=== PATIENT | female | born 1940 | race Caucasian/White ===

== ENCOUNTER 2017-12-11 04:29 | Inpatient (IN) | payer SELFPAY ==
[2017-12-11 05:04] LABS: #Basophils 0.1 thou/uL (0.0-0.2); #Lymphocytes 2.3 thou/uL (1.20-3.40); #Monocytes 0.5 thou/uL (0.11-0.59); #Neutrophils 2.5 thou/uL (1.40-6.50); %Basophils 1.4 % (0.0-1.0); %Eosinophils 0.1 % (0.0-10.0); %Lymphocytes 43.3 % (21.0-51.0); %Monocytes 8.9 % (0.0-10.0); %Neutrophils 46.3 % (42.0-75.0); Hemoglobin 11.1 g/dL (12.0-16.0); Mean Corpuscular HGB CONC 34.1 g/dL (32.0-36.0); Mean Platelet Volume 6.5 fL (7.4-10.4); Platelet Count 292 thou/uL (130-400); RBC Distribution Width 11.6 % (11.5-14.5); Red Blood Cell (RBC) Count 3.18 mill/uL (4.20-5.40); White Blood Cell (WBC) Count 5.3 thou/uL (4.8-10.8)
[2017-12-11 05:18] LABS: Anion Gap 14 mmol/L (10-20); BUN (Urea Nitrogen) 15 mg/dL (9.8-20.1); Calc. Creatinine Clearance 0 mL/min (70-130); Calcium 9.3 mg/dL (7.8-10.44); Carbon Dioxide 23 mmol/L (23-31); Chloride 106 mmol/L (98-107); Estimated GFR-MDRD 77; Glucose 88 mg/dL (83-110); Potassium 3.6 mmol/L (3.5-5.1); Sodium 139 mmol/L (136-145)
[2017-12-11 07:14] VITALS: BMI 21.9
[2017-12-11] MEDS ORDERED: Ondansetron ODT 4 MG TAB SL PRN (07:17)
[2017-12-11] MEDS ORDERED: Ondansetron HCl/PF 4 MG/2 ML Vial IVP PRN ×2 (07:17→07:26)
[2017-12-11] MEDS ORDERED: Acetaminophen 325 MG TAB PO PRN (07:17)
[2017-12-11] MEDS ORDERED: Ondansetron ODT 4 MG TAB PO PRN (07:26)
[2017-12-11] MEDS ORDERED: Dextrose 50% Abboject 50 ML SYRINGE SLOW IVP PRN (07:26)
[2017-12-11] MEDS ORDERED: hydrALAZINE 20 MG/ML VIAL SLOW IVP PRN (07:26)
[2017-12-11] MEDS ORDERED: Sodium Chloride 0.9% 1,000 ML IV SCH (07:26)
[2017-12-11] MEDS ORDERED: Dextrose 5% in Water 1,000 ML IV PRN (07:26)
[2017-12-11] MEDS ORDERED: Famotidine 20 MG TAB PO SCH (09:00)
--- NOTE | 2017-12-11 11:56 | HP ---
REASON FOR CONSULTATION: Pelvis fracture. HISTORY OF PRESENT ILLNESS: This is a very poor historian; however, she is able to tell me that she fell about 4-6 weeks ago. For some reason, she was taken to the hospital in [place] and transfe rred here not really sure why. On examination today, she has full range of motion of both hips, only very mild tenderness to the pel vis, compression and distraction. Really no significant bruising or swelling around the pelvis. Rad iograph show multiple pelvis fractures which completely nondisplaced and in various stages of healing . ASSESSMENT AND PLAN: Subacute pelvis fracture in a woman with only minimally uncomfortable range of motion and a completely stable pelvis fracture. Physical therapy, weightbearing as tolerated. It so unds like she may need skilled nursing placement.
[2017-12-11] MEDS ORDERED: Acetaminophen 1,000 MG in Premix Bag 1 BAG IVPB SCH (12:00)
--- NOTE | 2017-12-11 12:29 | RAD ---
AP PELVIS: HISTORY: Injury, fall. FINDINGS: There are fractures involving the left superior and inferior pubic rami. Please see CT pelvis report from earlier today. POS: [facility]
--- NOTE | 2017-12-11 14:14 | HP ---
DATE OF ADMISSION: 12/11/2017 REQUESTING PHYSICIAN: Dr. Burks. ATTENDING PHYSICIAN: Dr. Kaufman. CONSULTATIONS: Orthopedics, Dr. Lamar. HISTORY OF PRESENT ILLNESS: The patient is a 77-year-old female who was transferred here from [facility] with a vague history of a fall, occurring at some. The patient is a very poor historian an d her is not with us, but the patient has had history of previous falls and was reportedly ta aidan to the emergency room in [place] after a fall where she underwent evaluation and examination and was noted to have possibly acute on chronic pelvic fractures, at which time we were asked to adm it the patient for observation and review by Orthopedics. ALLERGIES: None. CURRENT MEDICATIONS: Currently unavailable. We are waiting the family members to bring us her list. PAST MEDICAL HISTORY: Reported as Alzheimer's and hypertension. PAST SURGICAL HISTORY: Appendectomy, cholecystectomy, right knee replacement. SOCIAL HISTORY: The patient reports she drinks occasionally. Denies drug or tobacco use. Lives at home with her in the [place] area. FAMILY MEDICAL HISTORY: Unknown. REVIEW OF SYSTEMS: Ten point review of systems negative otherwise stated. PHYSICAL EXAMINATION: VITAL SIGNS: Blood pressure 125/65, heart rate 96, respirations 14, oxygen saturation 94% on room ai r, temperature is 98.2. GENERAL: The patient is currently resting comfortably in bed on the surgical floor. She is awake, a lert, and oriented to person, but is able to be oriented to time and place. She is appropriate and d enies any discomfort at this time. HEENT: Head is normocephalic, atraumatic. Eyes: Extraocular motion intact. PERRLA bilaterally. E ars are atraumatic without discharge. Nose is atraumatic with discharge. Oropharynx is clear. NECK: Nontender. Trachea is midline. No JVD. CHEST: Clear to auscultation with good inspiratory and expiratory effort. HEART: Regular rate and rhythm. ABDOMEN: Soft, flat, nontender. PELVIC: Stable and nontender. EXTREMITIES: The patient is able to move her extremities, full range of motion. Her strength is 5/5 and pulses are 2+. BACK: Nontender and atraumatic. LABORATORY DATA: White blood cell count 5.3, hemoglobin 11.1, hematocrit 32.7, platelets 292. Sodiu m 139, potassium 3.6, chloride 106, CO2 23, BUN 15, creatinine 0.73, glucose 88. RADIOGRAPHIC FINDINGS: AP chest shows fractures involving this right sixth and seventh rib. AP pelv is shows fractures involving the left superior and inferior pubic rami fractures. CT of the pelvis w as reviewed with Dr. Lamar. Fractures all appeared to have callus of some degree of healing on them consistent with the patient's reported prior falls. ASSESSMENT AND PLAN: Status post fall. The patient has chronic findings on her pelvis x-ray and due to her being nontender in the chest unlikely that the fracture seen on her chest x-ray are acute. P er the patient and the family's request, she requests to be discharged home. Her pain is controlled with [id number] pain medication. She is tolerating a diet. She has worked with physical thera py and is able to ambulate with her walker as is her baseline. The evaluation, examination, radiogra phic and laboratory findings were discussed with Dr. Kaufman at the time of dictation.
[2017-12-11 14:21] VITALS: BP 146/84; TEMP 97.8
== END 2017-12-11 14:33 | disposition home or self-care (01) | DRG 536 ==
LOC: ERS 04:29 → SURG A 05:42
PROVIDERS: ADMIT Surgery; ATTEND Surgery
DX: S32.592A Other specified fracture of left pubis, initial encounter for closed fracture (principal); S22.41XA Multiple fractures of ribs, right side, initial encounter for closed fracture; G30.9 Alzheimer's disease, unspecified; F02.80 Dementia in other diseases classified elsewhere, unspecified severity, without behavioral disturbance, psychotic disturbance, mood disturbance, and anxiety; I10 Essential (primary) hypertension; W19.XXXA Unspecified fall, initial encounter; Z91.81 History of falling; Y92.009 Unspecified place in unspecified non-institutional (private) residence as the place of occurrence of the external cause
CPT/HCPCS: 36415; 72170; 99285; G8978-GP-CK; G8979-GP-CI

== ENCOUNTER 2018-12-03 13:32 | Inpatient (IN) | payer MEDICARE ==
[2018-12-03] MEDS ORDERED: Iopamidol 370 76% 50 ML VIAL FS ONE (13:57)
[2018-12-03] MEDS ORDERED: Multivitamins, Adult 10 ML, Thiamine HCl 100 MG, Folic Acid 1 MG in Dextrose 5 %-0.45 %... IV SCH (15:00)
[2018-12-03 15:01] LABS: ALT (SGPT) Less than 7 U/L (8-55); AST (SGOT) 19 U/L (5-34); Albumin 3.4 g/dL (3.4-4.8); Alkaline Phosphatase 77 U/L (40-150); Anion Gap 33 mmol/L (10-20); BUN (Urea Nitrogen) 42 mg/dL (9.8-20.1); Bilirubin, Total 0.6 mg/dL (0.2-1.2); Calc. Creatinine Clearance 0 mL/min (70-130); Calcium 7.7 mg/dL (7.8-10.44); Chloride 105 mmol/L (98-107); Estimated GFR-MDRD 23; Globulin 2.7 g/dL (2.4-3.5); Glucose 95 mg/dL (83-110); Potassium 4.3 mmol/L (3.5-5.1); Protein, Total 6.1 g/dL (6.0-8.3); Sodium 142 mmol/L (136-145)
[2018-12-03 15:04] LABS: Carbon Dioxide 8 mmol/L (23-31)
[2018-12-03 16:28] LABS: Bilirubin 1+ (Negative); Blood, Urine Negative (Negative); Clarity Turbid (Clear); Glucose, Urine (Dipstick) Normal (Negative); Leukocyte 75 Leu/uL (Negative); Nitrite Negative (Negative); Protein, Urine (Dipstick) 50 mg/dL (Neg-Trace); RBC/HPF 0-3 HPF (0-3)
[2018-12-03 16:32] LABS: Bacteria/HPF 2+ HPF (None Seen)
[2018-12-03] MEDS ORDERED: Senokot S 8.6-50 MG TAB PO PRN (16:35)
[2018-12-03] MEDS ORDERED: Acetaminophen 650 MG Suppository PR PRN (16:35)
[2018-12-03] MEDS ORDERED: Ondansetron ODT 4 MG TAB PO PRN (16:35)
[2018-12-03] MEDS ORDERED: Acetaminophen 325 MG TAB PO PRN (16:35)
[2018-12-03] MEDS ORDERED: Sodium Chloride 0.9% 1,000 ML IV SCH (16:45)
--- NOTE | 2018-12-03 16:47 | PDOC.FPRHP ---
- History of Present Illness Chief Complaint: Nausea and Vomiting History of Present Illness: The pt states she woke up vomiting last night and nauseous, so she decided to go to the ER. ED Course: She was given 2L of fluid in [place] ER. She was transferred with a liter. In our, she received 1L of fluid of banana bag. She had a LA of 2.7 in [place] that was rechecked her and found to be 1.8. She has a creatinine of 2.12, CO2 of 8, Anion gap is 33, and BUN is 42. - Allergies/Adverse Reactions Allergies Allergy/AdvReac Type Severity Reaction Status Date / Time aspirin Allergy Intermediate Hives Verified 02/28/18 12:30 - Home Medications Medication Instructions Recorded Confirmed Type Acetaminophen [Tylenol Regular 650 mg PO Q4H PRN tab 12/11/17 09/19/18 Rx Strength] Lisinopril [Prinivil] 40 mg PO DAILY 03/03/18 09/19/18 History Folic Acid [Folvite] 1 mg PO 1700 tab 03/09/18 09/19/18 Rx Memantine HCl [Namenda] 10 mg PO DAILY tab 03/09/18 09/19/18 Rx Multivitamin W/ Minerals 1 tab PO DAILY tab 03/09/18 09/19/18 Rx [Theragran M] Bisacodyl [Dulcolax] 10 mg PO DAILY PRN 09/16/18 09/19/18 History Thiamine 100 mg PO 1700 09/16/18 09/19/18 History Haloperidol Lactate [Haldol] 5 mg IM BIDPRN PRN vial 09/28/18 Rx Magnesium Chloride [Slow-Mag] 64 mg PO BID tab 09/28/18 Rx Nitroglycerin [Nitrostat] 0.4 mg SL Q5MIN PRN tab 09/28/18 Rx Ondansetron [Zofran ODT] 4 mg SL Q6H PRN tab 09/28/18 Rx traMADol HCl [Ultram] 50 mg PO BIDPRN PRN tab 09/28/18 Rx - History PMHx: HTN PSHx: Left & Right Knee Replacement in 2018, Appendectomy, Cholecystectomy, and Tonsillectomy FHx: None Social: Lives with . Retired. Drinks weekly, denies drugs, and does not smoke - Review of Systems General: denies: fever/chills Eyes: denies: vision changes ENT: denies: nasal congestion, rhinorrhea Respiratory: reports: shortness of breath. denies: cough Cardiovascular: denies: chest pain Gastrointestinal: reports: nausea, vomiting. denies: diarrhea Genitourinary: denies: dysuria Skin: denies: rashes, itching Musculoskeletal: reports: pain Neurological: reports: weakness Psychological: denies: anxiety - Vital signs BP: [92/60] HR: [103] RR: [22] Tmax: [97.6] Pox: [100]% on [RA] Wt: [69.85 kg ] - Physical Exam Constitutional: NAD -Constitutional: A&O x 1 HEENT: normocephalic and atraumatic, PERRLA, EOMI, grossly normal hearing, MMM, oropharynx clear -HEENT: Unable to visualize TM Neck: supple, no LAD Chest: no-tender to palpation Heart: RRR, normal S1/S2 Lungs: CTAB Abdomen: soft, bowel sounds present -Abdomen: tender to palpation Musculoskeletal: normal structure -Musculoskeletal: UE & LE were 4/5 Neurological: no focal deficit, CN II-XII intact Skin: no rash/lesions Heme/Lymphatic: no unusual bruising or bleeding -Psychiatric: memory deficits FMR H&P: Results - Labs Result Diagrams: 12/03/18 14:30 Lab results: Sodium 142 mmol/L (136-145) 12/03/18 14:30 Potassium 4.3 mmol/L (3.5-5.1) 12/03/18 14:30 Chloride 105 mmol/L (98-107) 12/03/18 14:30 Carbon Dioxide 8 mmol/L (23-31) L* 12/03/18 14:30 BUN 42 mg/dL (9.8-20.1) H 12/03/18 14:30 Creatinine 2.12 mg/dL (0.6-1.1) H 12/03/18 14:30 Glucose 95 mg/dL (83-110) 12/03/18 14:30 Lactic Acid 1.8 mmol/L (0.5-2.2) 12/03/18 14:30 Calcium 7.7 mg/dL (7.8-10.44) L 12/03/18 14:30 Total Bilirubin 0.6 mg/dL (0.2-1.2) 12/03/18 14:30 AST 19 U/L (5-34) 12/03/18 14:30 ALT Less than 7 U/L (8-55) L 12/03/18 14:30 Alkaline Phosphatase 77 U/L (40-150) 12/03/18 14:30 Serum Total Protein 6.1 g/dL (6.0-8.3) 12/03/18 14:30 Albumin 3.4 g/dL (3.4-4.8) 12/03/18 14:30 Urine Ketones 10 mg/dL (Negative) A 12/03/18 16:10 Urine Blood Negative (Negative) 12/03/18 16:10 Urine Nitrite Negative (Negative) 12/03/18 16:10 Ur Leukocyte Esterase 75 Kiran/uL (Negative) A 12/03/18 16:10 Urine RBC 0-3 HPF (0-3) 12/03/18 16:10 Urine WBC 7-10 HPF (0-3) A 12/03/18 16:10 Ur Squamous Epith Cells 4-6 HPF (0-3) A 12/03/18 16:10 Urine Bacteria 2+ HPF (None Seen) A 12/03/18 16:10 FMR H&P: A/P - Problem List (1) Hypotension Current Visit: Yes Status: Acute (2) ANDREW (acute kidney injury) Current Visit: Yes Status: Acute Code(s): N17.9 - ACUTE KIDNEY FAILURE, UNSPECIFIED (3) Metabolic acidosis Current Visit: Yes Status: Acute Code(s): E87.2 - ACIDOSIS (4) Elevated troponin Current Visit: Yes Status: Acute Code(s): R74.8 - ABNORMAL LEVELS OF OTHER SERUM ENZYMES (5) Acute cystitis Current Visit: Yes Status: Acute Code(s): N30.00 - ACUTE CYSTITIS WITHOUT HEMATURIA (6) History of alcohol abuse Current Visit: Yes Status: Chronic Code(s): F10.11 - ALCOHOL ABUSE, IN REMISSION - Plan 1. Hypotension * She recieved 4L in the ER * 1/2NS with 75 mEq of BiCarb @ 125 * Will monitor vitals in IMCU 2. ANDREW with tubular necrosis * Urine studies ordered * 1/2 NS with 75 mEq of BiCarb @ 125 * Will check BMP in the morning * Nephrology consulted (12/03), appreciate recs. 3. Metabolic Acidosis * Will trend BMP and make sure ion gap closes * Receiving 75 mEq of Bicarb 4. Troponin * Will trend troponins * Contacted [facility] to get more on code status 5. Acute Cystitis * UA was postive for LE and WBC * 1 g of Rocephin was given in the ER 6. History of Alcohol Abuse * She received a banana bag in the ER * Giving PO Thiamine daily Code Status: Full Lines: Peripheral Diet: Regular Activity: with assist DVT Prophylaxis: Heparin Dispo: This patient will be here >48H. FMR H&P: Upper Level - Pertinent history 78 y/o F PMHx HTN and chronic alcohol abuse presents with N/V that started last night as well as abdominal pain. She presented to the ED in [place] and was found to have SBP in the 70s. She reports she hasn't been able to keep much down, but she also reports decreased appetite and PO intake over the past couple of months. She has a h/o alcohol abuse, but hasn't been drinking as much lately. She reports having a single mixed drink a couple of days ago. - Pertinent findings Vitals: BP 83/40, HR 98, RR 21, Temp 97.6 PE: Gen - resting comfortably in bed, no acute distress HEENT - dry mucous membranes CV - tachycardic, regular rhythm, no murmurs Resp - CTAB, no wheezes Abd - non-distended, soft, non-tender Ext - no edema Labs: Hb 10.3, CO2 8, BUN 42, Cr 2.12, Trop 0.043 - Plan Date/Time: 12/03/18 [id number] I, Sally Anthony MD, PGY-3, have evaluated this patient and agree with findings/ plan as outlined by internal controls analyst resident. Pertinent changes/additions are listed here. 1. Hypotension 2/2 dehydration with recent episodes of emesis and decreased PO intake. BP's initially 70s/40s, pt s/p 3L NS and 1L banana bag. Her BP's at that point had only improved to the 80s/50s. Concern that there is concurrent ATN. -Will admit to IMCU -Will hold off on pressors at this time and continue to fluid resuscitate as BP' s are beginning to come up -Monitor BP closely -1/2NS with 75mEq HCO3 at 125mL/hr 2. ANDREW Likely both prerenal and ATN. Cr 2.34->2.12 with BUN 42. CO2 8. -Consulted Dr. Mooney with Nephrology, appreciate recs -Fluids as above -Monitor BMP -Will check urine creatinine, protein, sodium, and urea nitrogen 3. Anion Gap Metabolic Acidosis AG 29. Bicarb 8. Concern initially that this could be alcoholic ketoacidosis 2/ 2 past history, but last drink was several days ago and blood alcohol level was negative. -Fluids as above -Nephrology on board -Check beta hydroxybutyrate 4. Elevated troponin Denies any current chest pain. Initial trop 0.043 -Trend trop 5. h/o alcohol abuse No recent abuse per patient. Alcohol level negative. No signs of withdrawal. 6. Acute Cystitis UA showed crystals, bacteria, and LE -Will treat with rocephin -Urine culture Code status: Full VTE ppx: Heparin Dispo: Admit to [facility]
[2018-12-03] MEDS ORDERED: Sodium Bicarbonate 75 MEQ in Sodium Chloride 0.45% 1,000 ML IV SCH (17:15)
[2018-12-03 17:51] LABS: Creatinine, Urine 136.79 mg/dL (47-110)
[2018-12-03 17:59] LABS: Lactic Acid 1.5 mmol/L (0.5-2.2)
[2018-12-03 18:16] LABS: CKMB 5.5 ng/mL (0-6.6)
[2018-12-03] MEDS ORDERED: cefTRIAXone\\ROCEPHIN 1 GM in Sodium Chloride 0.9% 100 ML IVPB SCH (18:30)
[2018-12-03] MEDS ORDERED: Ondansetron PF 4 MG/2 ML Vial ONE (19:42)
--- NOTE | 2018-12-03 20:55 | CON ---
DATE OF CONSULTATION: 12/03/2018 REASON FOR CONSULTATION: Acute kidney injury and severe metabolic acidosis. REQUESTING PHYSICIAN: Sally Anthony MD. CHIEF COMPLAINT: Abdominal pain and weakness. HISTORY OF PRESENT ILLNESS: A 78-year-old female, with known history of chronic alcohol abuse, hypertension, noncompliance, who presented to [facility] with complaint of abdominal pain associated with nausea and vomiting as well as loose stools. The patient is a poor historian. Most of the history was obtained by review of medical record. On further evaluation in [place] ER, the patient was found to be hypertensive, dehydrated, and with severe metabolic acidosis as well as acute kidney injury and was treated with IV fluids. She was subsequently transferred over here for further evaluation and treatment. On further questioning, the patient reported that she has been sick for a long period of time. She admitted to abdominal pain which she said has worsened, especially in the lower abdomen. She admitted to nausea and vomiting as well as loose stools and reported that last 2 was about 2 to 3 days ago and last emesis was about 1 week ago. Oral intake has been poor for several weeks. She also admitted to falls. She admitted to alcohol use with last alcohol intake being about 2 to 3 nights ago. She is not taking any medication currently at home. She admitted to fever at home, but there has been none since presentation to the hospital. PAST MEDICAL HISTORY: 1. Hypertension. 2. Chronic alcoholism. 3. Chronic back pain. PAST SURGICAL HISTORY: 1. Total hysterectomy with BSO. 2. Cholecystectomy. 3. Appendectomy. 4. Right risk surgery for fracture. 5. Left foot fracture surgery. 6. Lumbar spine surgery. 7. Right knee surgery. FAMILY HISTORY: Reviewed, but noncontributory. SOCIAL HISTORY: The patient lives with spouse at home. She admitted to alcohol use, but denied smoking or recreational drug use. ALLERGIES: NO KNOWN DRUG ALLERGIES REPORTED. CURRENT HOME MEDICATIONS: None. REVIEW OF SYSTEMS: 12-point review of system reviewed were negative other than pertinent positives and negatives included in the History of Present Illness. PHYSICAL EXAMINATION: VITAL SIGNS: Initial vitals on presentation to the ER showed BP of 96/51, pulse of 89, respiratory rate of 18, temperature of 97.5. Most current BP was 110/58. Of note, during the course of ER stay, blood pressure has gone down to a roly of 75 systolic. GENERAL: Chronically ill-looking elderly female, in no obvious distress. Afebrile. Anicteric. Acyanotic. HEENT: Normocephalic, atraumatic. Pupils are reacting to light. Oral mucosa is moist. NECK: Supple. Nontender with full range of motion. No masses, JVD, or lymphadenopathy appreciated. CARDIOVASCULAR: Regular rhythm and rate with normal heart sounds 1 and 2. RESPIRATORY: Fair air entry bilateral with no obvious crackle or rhonchi. GI: Full, soft with [id number]-[id number] bilateral lower abdominal tenderness. Bowel sound is normoactive. EXTREMITIES: Appear rather dry, but otherwise no edema, erythema, or cyanosis. NEUROLOGIC: Conscious and alert, oriented x3 with appropriate mental status. Memory lapse is noted. The patient cranial nerves 2 through 12 are grossly intact. The patient moves all extremities. DIAGNOSTIC DATA: CBC today showed WBC count of 8.6, hemoglobin of 10.2, MCV of 103.7, and platelet of 160. Of note, review of previous labs showed that the patient had a hemoglobin of 8.5 and 9.1 on September 17 and , respectively. Initial CMP performed at [facility] showed sodium 143, potassium 4.4, chloride 99, CO2 less than 10, BUN 43, creatinine 2.34, glucose 95, calcium 8.2, total bilirubin 0.9, AST 23, ALT 12, alkaline phosphatase 89, total protein 7.1, albumin 3.9, globulin 3.2. Lipase 23. Lactic acid 2.7. Review of medical records showed the patient had normal creatinine of 0.69 on September 21, 2018, but creatinine has been elevated at 2.63 and that ranged since September 26, 2018. Cardiac markers showed CK 3.3, troponin 0.043. Repeat CMP at 1430 hours today showed sodium 142, potassium 4.3, chloride 105, CO2 of 8, anion gap 33, BUN 42, creatinine 2.12, glucose 95, calcium 7.7, total bilirubin 0.6, AST 19, ALT less than 7, alkaline phosphatase 77, total protein 6.1, albumin 3.4, globulin 2.7. Following IV fluid therapy, lactic acid decreased to 1.5. Urinalysis showed yellow turbid urine with pH of 5.0, specific gravity of 1.014, protein 50 mg/dL, positive ketones, bilirubin, and leukocyte esterase while blood, nitrite, and glucose were negative. Microscopy showed 0 to 3 RBC and 7 to 10 WBC. Toxicology screen showed less than 10 mg/dL of alcohol and elevated beta-hydroxybutyrate at 10.08. EKG showed normal sinus rhythm with rate of 88. ASSESSMENT: 1. Acute kidney injury: This most likely is related to hemodynamic factors due to volume depletion from poor oral intake and alcohol-induced diuresis. Sepsis from our occult infection is a concern, but seems unlikely. The patient also reported some prior episode of nausea, vomiting, and diarrhea illness. 2. Severe anion gap metabolic acidosis: This most likely is due to acute kidney injury as well as gastrointestinal losses of bicarb. Dehydration ketosis as well as alcohol ketosis may be contributory. Occult abdominal pathology cannot be ruled out at this time given abdominal tenderness. 3. Hypotension: Most likely due to volume depletion. Occult infection and sepsis cannot be ruled out. 4. Abdominal tenderness: Etiology is unclear. 5. History of nausea, vomiting, and diarrhea. Timing of this cannot be established. The patient currently is not having any of this. PLANS: 1. We will start sodium bicarbonate infusion given severe metabolic acidosis. We will also get CT scan of the abdomen and pelvis with oral contrast. 2. We will get urine electrolytes as well as UPC. 3. We will also get serum magnesium as well as folic acid and vitamin B12 given macrocytosis. 4. Microcytic anemia: Most likely related to chronic alcohol abuse. 5. We will recheck renal function in the morning. Many thanks for involving us in the care of this patient. We will follow along with you. Further recommendation to follow on review of other diagnostic tests and hospital course. Job ID: [id number]
[2018-12-03] MEDS ORDERED: Famotidine 20 MG TAB PO SCH (21:00)
[2018-12-03 21:21] LABS: Anion Gap 24 mmol/L (10-20); BUN (Urea Nitrogen) 40 mg/dL (9.8-20.1); Calc. Creatinine Clearance 16 mL/min (70-130); Calcium 7.2 mg/dL (7.8-10.44); Carbon Dioxide 14 mmol/L (23-31); Chloride 107 mmol/L (98-107); Estimated GFR-MDRD 22; Glucose 176 mg/dL (83-110); Potassium 3.9 mmol/L (3.5-5.1); Sodium 141 mmol/L (136-145)
[2018-12-03] MEDS: Heparin 5,000 UNITS/ML VIAL SC SCH (22:06)
[2018-12-03] MEDS: Sodium Bicarbonate 150 MEQ in Dextrose 5% in Water 1,000 ML IV SCH (22:08)
--- NOTE | 2018-12-03 22:45 | CT ---
ABDOMEN AND PELVIC CT SCAN WITHOUT IV CONTRAST: History: Nausea, vomiting, diarrhea. FINDINGS: Bilateral pleural effusions. Minimal parenchymal changes in both lower lobes, nonspecific, possibly m ild pneumonitis or subsegmental atelectasis. Status post cholecystectomy. Visualized liver, pancreas, spleen, adrenal glands are unremarkable as e valuated without IV contrast. There are some calcifications which appear to be vascular calcification s in the right kidney. No obstructing calculus. There are colonic diverticulosis changes throughou t the sigmoid colon and left colon, particularly the sigmoid colon. There is some minimal sigmoid col on wall thickening but no discrete focal area of significant pericolonic fat stranding that would sug gest acute diverticulitis although it is conceivable that this could represent some very mild diverti culitis. No evidence for large or small bowel obstruction. Marked vertebral body collapse of L2 and T 12, age indeterminate but new when compared to prior 11-19-16 study. IMPRESSION: Bilateral pleural effusions. Minimal bibasilar parenchymal changes, possibly mild pneumonitis or subs egmental atelectasis. Colonic diverticulosis, particularly the sigmoid colon, with some minimal wall thickening but without overt discrete acute diverticulitis. T12 and L2 vertebral body collapse, age i ndeterminate. No intraabdominal abscess or abnormal fluid collection. POS: [facility]
[2018-12-03] MEDS ORDERED: Sodium Chloride 0.9% 500 ML IV SCH (23:45)
[2018-12-04 05:02] LABS: #Lymphocytes 1.1 thou/uL (1.20-3.40); #Monocytes 0.5 thou/uL (0.11-0.59); #Neutrophils 3.7 thou/uL (1.40-6.50); %Basophils 0.2 % (0.0-1.0); %Eosinophils 0.3 % (0.0-10.0); %Lymphocytes 20.4 % (21.0-51.0); %Monocytes 9.1 % (0.0-10.0); Hemoglobin 8.9 g/dL (12.0-16.0); Mean Corpuscular Hemoglobin 33.2 pg (27.0-31.0); Mean Platelet Volume 6.5 fL (7.4-10.4); Platelet Count 103 thou/uL (130-400); Platelet Morphology Comment Appears Decreased; RBC Distribution Width 13.3 % (11.5-14.5); Red Blood Cell (RBC) Count 2.68 mill/uL (4.20-5.40); White Blood Cell (WBC) Count 5.2 thou/uL (4.8-10.8)
[2018-12-04 05:10] LABS: Anion Gap 15 mmol/L (10-20); BUN (Urea Nitrogen) 41 mg/dL (9.8-20.1); Calc. Creatinine Clearance 18 mL/min (70-130); Calcium 7.2 mg/dL (7.8-10.44); Carbon Dioxide 20 mmol/L (23-31); Chloride 105 mmol/L (98-107); Estimated GFR-MDRD 24; Glucose 144 mg/dL (83-110); Magnesium 1.5 mg/dL (1.6-2.6); Potassium 3.3 mmol/L (3.5-5.1); Sodium 137 mmol/L (136-145)
--- NOTE | 2018-12-04 07:00 | PDOC.FM ---
- Subjective Subjective: pt resting comfortably in bed, denies pain, tremors or hallucination. AOx1 - Objective Vital Signs & Weight: Vital Signs (12 hours) Temp Pulse Ox 12/04/18 05:00 98.7 F 12/04/18 01:00 98.2 F 12/03/18 23:37 99 12/03/18 21:33 100 12/03/18 21:00 98.1 F Weight Weight 48.1 kg Most Recent Monitor Data Heart Rate from ECG 105 NIBP 100/62 NIBP BP-Mean 74 Respiration from ECG 22 SpO2 86 I&O: 12/02/18 12/03/18 12/04/18 06:59 06:59 06:59 Intake Total 2605 Output Total 250 Balance 2355 Result Diagrams: 12/04/18 04:32 12/04/18 04:32 Phys Exam - Physical Examination Constitutional: NAD HEENT: moist MMs Neck: no JVD Respiratory: clear to auscultation bilateral Cardiovascular: RRR, no significant murmur Gastrointestinal: soft, no distention Musculoskeletal: no edema, pulses present Neurological: moves all 4 limbs Psychiatric: normal affect Skin: no rash Dx/Plan (1) ANDREW (acute kidney injury) Code(s): N17.9 - ACUTE KIDNEY FAILURE, UNSPECIFIED Status: Acute (2) Acute cystitis Code(s): N30.00 - ACUTE CYSTITIS WITHOUT HEMATURIA Status: Acute (3) Elevated troponin Code(s): R74.8 - ABNORMAL LEVELS OF OTHER SERUM ENZYMES Status: Acute (4) Hypotension Status: Acute (5) Metabolic acidosis Code(s): E87.2 - ACIDOSIS Status: Resolved (6) History of alcohol abuse Code(s): F10.11 - ALCOHOL ABUSE, IN REMISSION Status: Chronic - Plan Plan: Hypotension, improving - 2/2 dehydration with recent episodes of emesis and decreased PO intake. - BP's initially 70s/40s, pt s/p 3L NS and 1L banana bag - Continue fluid resuscitation and monitor BP pre-renal ANDREW - FeNa <0.5, Cr 2.34->2.00 -Consulted Dr. Mooney with Nephrology, appreciate recs -Fluids as above. Continue to monitor BMP and replace lytes as necessary Anion Gap Metabolic Acidosis, resolved - AG 29 -> 12. Beta hydroxybutyrate 10. Continue IVF - h/o alcohol abuse Elevated troponin - Denies any current chest pain. Initial trop 0.043 -> 0.043 h/o alcohol abuse - ASE protocol, no current signs of withdrawal Code status: Full VTE ppx: Heparin Dispo: likely able to txfr to medical floor today Addendum - Attending - Attending Attestation Date/Time: 12/04/18 [id number] I personally evaluated the patient and discussed the management with Dr. Butler and Feliz. I agree with the History, Examination, Assessment and Plan documented above with any addition or exceptions noted below. She is pleasantly demented and asymptomatic. After reviewing I believe likely starvation ketosis, with of course some possibility of alcoholic ketoacidosis, but if this is her mental baseline I doubt she is functional enough to make it to a store. It alcoholic ketoacidosis is considered, toxic alcohols must be also, but she is doing quite well and her ANDREW is gradually improving. Xfer out of ICU and monitor. We need more social information about where she is staying as she cannot live on her own.
[2018-12-04] MEDS ORDERED: Haloperidol Lactate 5 MG/ML VIAL IM PRN (08:39)
[2018-12-04] MEDS ORDERED: Nitroglycerin 0.4 MG TAB (25 Tab Bottle) SL PRN (08:39)
[2018-12-04] MEDS ORDERED: Potassium Chloride 20 MEQ TAB PO SCH (08:45)
[2018-12-04] MEDS ORDERED: Lisinopril 10 MG TAB PO SCH (09:00)
[2018-12-04] MEDS: Heparin 5,000 UNITS/ML VIAL SC SCH ×3 (09:08→20:04)
[2018-12-04] MEDS: Thiamine 100 MG TAB PO SCH (09:08)
[2018-12-04] MEDS: Magnesium Chloride 64 MG TAB PO SCH ×2 (09:09→20:04)
[2018-12-04] MEDS: Multivitamin W/ Minerals 1 TAB PO SCH (09:12)
[2018-12-04] MEDS: Sodium Bicarbonate 150 MEQ in Dextrose 5% in Water 1,000 ML IV SCH (10:03)
--- NOTE | 2018-12-04 10:36 | CON ---
DATE OF CONSULTATION: 12/04/2018 REASON FOR CONSULTATION: CCU protocol. HISTORY OF PRESENT ILLNESS: The patient is a 78-year-old female, who was hospitalized yesterday with a severe metabolic acidosis. It is thought that she probably has some degree of alcoholic ketosis. She is a very poor historian. Nothing she says seems to be reliable in the way of history. PAST MEDICAL HISTORY: Hypertension. PAST SURGICAL HISTORY: Bilateral knee replacements, appendectomy, cholecystectomy, and tonsillectomy. FAMILY MEDICAL HISTORY: Unremarkable. SOCIAL HISTORY: Apparently drinks one mixed drink a day. Does not smoke. Originally from [place]. Lives at home with her . REVIEW OF SYSTEMS: Otherwise negative. PHYSICAL EXAMINATION: VITAL SIGNS: Temperature 98.4, pulse 96, blood pressure 115/57, and O2 saturation 97%. HEENT: Unremarkable. NECK: No adenopathy or JVD. LUNGS: Clear. CARDIAC: S1 and S2. Regular. ABDOMEN: Mild midepigastric tenderness. No rebound. EXTREMITIES: No clubbing or cyanosis. Severe muscle wasting. LABORATORY DATA: Sodium 137, potassium 3.3, chloride 105, CO2 of 20, BUN 41, creatinine 2.0, glucose 144, lactate 1.5, and magnesium 1.5. Urinalysis positive for ketones and protein. Beta-hydroxybutyrate was initially 10. White blood cell count 5.2, hematocrit 26.9, and platelet count 103. ASSESSMENT: Severe metabolic acidosis at the time of admission. Likely secondary either to the alcohol ketosis or starvation ketosis. Does not appear to be overtly septic, has improved with hydration. PLAN: Agree with transfer out of the CCU. Continue to replace electrolytes and hydrate. No further Pulmonary/Critical Care recommendations. Job ID: [id number]
--- NOTE | 2018-12-04 12:23 | PDOC.EVN ---
Event Note - Event Note Event Note: patients PCP admits to [facility], transfer of care initiated. Dr. Frey is container finisher, contacted by secretary office clerk. Reported as accepted. will transfer care now. please contact for further questions.
[2018-12-04] MEDS ORDERED: Lactated Ringer's 1,000 ML IV SCH (14:49)
[2018-12-04] MEDS: Folic Acid 1 MG TAB PO SCH (16:39)
--- NOTE | 2018-12-04 19:04 | PRG ---
DATE OF SERVICE: 12/04/2018 SUBJECTIVE: A 78-year-old female with known history of chronic alcohol abuse and medication noncompliance, admitted due to abdominal pain and generalized weakness. Nephrology is following the patient for severe metabolic acidosis, acute kidney injury, and dehydration. Abdominal pain is said to be better. The patient denied nausea or vomiting. She remained afebrile. OBJECTIVE: VITAL SIGNS: Temperature 97.8, pulse 104, respiratory rate 14, SpO2 of 98 on room air, blood pressure is 124/66. GENERAL: Chronically ill-looking elderly, in no obvious distress. The patient is fatigued. Afebrile. Anicteric. Acyanotic. HEENT: Normocephalic, atraumatic. Oral mucosa is moist. CARDIOVASCULAR: Regular rhythm and rate with normal heart sounds. Soft systolic murmur noted. The patient is tachycardic. RESPIRATORY: Fair air entry bilaterally with some transmitted sounds. No respiratory distress appreciated. GI: Full, soft, nontender, nondistended with normal bowel sounds. Mild lower abdominal tenderness appreciated. EXTREMITIES: Grossly normal looking atraumatic with no edema, erythema, or cyanosis. NEUROLOGIC: Conscious, alert, and oriented x3 with appropriate mental status. Cranial nerves 2 through 12 are grossly intact. Memory lapse is noted. DIAGNOSTIC DATA: CBC showed WBC count of 5.2, hemoglobin of 8.9, MCV of 101, platelet of 103. Renal function panel today showed sodium 137, potassium 3.3, chloride 105, CO2 of 20, BUN 41, creatinine 2.0, glucose 144, calcium 7.2, magnesium 1.5, CK is 1106. B12 is 515. Vitamin D is 15.4. UPC is about [address] scan of the abdomen and pelvis without contrast showed mild bibasilar parenchymal changes, possibly mild pneumonitis or atelectasis. Colonic diverticulosis particularly in the sigmoid with some minimal wall thickening, but without overt discrete acute diverticulitis noted. T12 and L2 vertebral body collapse, age indeterminate was also noted. ASSESSMENT AND PLAN: 1. Acute kidney injury: Due to hemodynamic factors related to volume depletion from poor oral intake and alcohol-induced diuresis. 2. Metabolic acidosis: Due to dehydration and alcohol-induced ketosis. 3. Hypotension: Due to volume depletion. 4. Diverticulosis with possible diverticulitis. 5. Rhabdomyolysis: Given elevated CPK, the patient reported falls. This could be related to dehydration as well as alcohol abuse and falls. PLAN: 1. Continue crystalloid therapy. We will however change from sodium bicarb to half-normal saline with bicarb. 2. We will replete vitamin D. 3. Treatment of alcohol abuse and withdrawal as per primary attending. We will replete serum magnesium and potassium as well. Recheck CBC, BMP, CPK, and magnesium in the morning. 4. Care plan discussed with primary attending. Job ID: [id number]
[2018-12-04] MEDS: Sodium Bicarbonate 75 MEQ in Sodium Chloride 0.45% 1,000 ML IV SCH (20:01)
[2018-12-04] MEDS ORDERED: Diazepam 5 MG TAB PO PRN (20:39)
[2018-12-04] MEDS ORDERED: Thiamine HCl 200 MG/2 ML VIAL IM SCH (20:45)
[2018-12-04] MEDS ORDERED: Diazepam 5 MG TAB PO SCH (20:45)
[2018-12-05] MEDS ORDERED: Diazepam 5 MG TAB PO PRN (04:00)
[2018-12-05] MEDS: Sodium Bicarbonate 75 MEQ in Sodium Chloride 0.45% 1,000 ML IV SCH (04:33)
--- NOTE | 2018-12-05 07:14 | PDOC.FM ---
- Subjective Subjective: Pt is doing well this morning without any concerns or complaints. She did require 1 dose of valium overnight due to agitation. Pt is still A/O x 1 and thinks she is at her son's house with something cooking on the stove. She is pleasant and calm, but unaware of her situtation. Denies any pain, f/c, n/v/d/c , SOB, CP. No family has been by to visit or called about patient since her stay per nurse. - Objective MAR Reviewed: Yes Vital Signs & Weight: Vital Signs (12 hours) Temp Pulse Ox 12/05/18 04:00 98.8 F 12/05/18 00:00 98.6 F 98 12/04/18 20:00 98.4 F 94 L Weight Admit Weight 48.081 kg Weight 48.6 kg Most Recent Monitor Data Heart Rate from ECG 95 NIBP 147/118 NIBP BP-Mean 127 Respiration from ECG 17 SpO2 100 I&O: 12/04/18 12/05/18 12/06/18 06:59 06:59 06:59 Intake Total 2605 3180 Output Total 250 1500 Balance 2355 1680 Result Diagrams: 12/05/18 08:30 12/05/18 06:54 Phys Exam - Physical Examination Constitutional: NAD HEENT: moist MMs Neck: supple Respiratory: no rales, no rhonchi, clear to auscultation bilateral Mild end-expiratory wheeze bilaterally Cardiovascular: RRR, no significant murmur, no rub Gastrointestinal: soft, non-tender, no distention, positive bowel sounds Musculoskeletal: no edema Deviation from normal: A/O x1. unaware of situation. poor insight. Dx/Plan (1) ANDREW (acute kidney injury) Code(s): N17.9 - ACUTE KIDNEY FAILURE, UNSPECIFIED Status: Resolved (2) Elevated troponin Code(s): R74.8 - ABNORMAL LEVELS OF OTHER SERUM ENZYMES Status: Resolved (3) Hypotension Status: Resolved (4) Metabolic acidosis Code(s): E87.2 - ACIDOSIS Status: Resolved (5) History of alcohol abuse Code(s): F10.11 - ALCOHOL ABUSE, IN REMISSION Status: Chronic - Plan Plan: 78yo F with h/o alcohol abuse who presents with ANDREW, hypotension, metabolic acidosis, and generalized deconditioning. 1. Hypotension, resolved - 2/2 dehydration with recent episodes of emesis and decreased PO intake. - BP's initially 70s/40s, improved to 130s/90s. - Continue MIVF. Monitor. 2. Pre-renal ANDREW, Resolved - FeNa <0.5, Cr 2.34->0.97. Will Monitor. - Consulted Dr. Mooney with Nephrology, rec continued MIVF with replacement as necessary, appreciate recs. 3. Anion Gap Metabolic Acidosis, resolved - AG 29 -> 12. Beta hydroxybutyrate 10. Continue IVF - h/o alcohol abuse. Starvation ketosis with component of alcoholic ketosis. - CM consulted to help with arrangement of placement and living conditions. - Pulm, Dr. Gutierrez, consulted, rec transfer to medical floor, pt stable. apprec rec. 4. Elevated troponin - Denies any current chest pain. Trops stable. 5. h/o alcohol abuse - ASE protocol, no current signs of withdrawal. Valium prn. 6. Deconditioning - PT consulted, apprec recs - Director Of Admissions consulted, apprec recs - Will attempt to contact family for placement. Appreciate CM assistance. 7. Bacteruria - UA with multiple squamous cells, + WBC, LE, neg nite - s/p 1 dose Rocephin - VSS, asx, unlikely cystitis. Will monitor and no further abx at this time. Code status: Full Diet: Regular VTE ppx: Heparin Dispo: Transfer to medical floor. Pending eval and placement. Anticipate hospitalization 3-4 days. Addendum - Attending - Attending Attestation Date/Time: 12/05/18 8542 I personally evaluated the patient and discussed the management with Dr. Anjana Butler at 1010 am. I agree with the History, Examination, Assessment and Plan documented above with any addition or exceptions noted below. Hypotension- resolved. Now elevated- start lisinopril. Metabolic acidosis- resolved. presumed from starvation ketosis. ANDREW-resolved Patient with unknown baseline mental status. Dr. Butler has been unable to reach patients family to help with assessment of baseline. Wheezing- add duonebs and O2 to keep sats >92% (unknown if underlying lung disease). Replace electrolytes. PT and CM to help with placement.
[2018-12-05 07:32] LABS: Anion Gap 13 mmol/L (10-20); BUN (Urea Nitrogen) 23 mg/dL (9.8-20.1); BUN/Creatinine Ratio 23.71; CK (CPK) 496 U/L (29-168); Calc. Creatinine Clearance 37 mL/min (70-130); Carbon Dioxide 29 mmol/L (23-31); Chloride 103 mmol/L (98-107); Estimated GFR-MDRD 56; Glucose 96 mg/dL (83-110); Magnesium 1.6 mg/dL (1.6-2.6); Phosphorus 1.7 mg/dL (2.3-4.7); Potassium 3.1 mmol/L (3.5-5.1); Sodium 142 mmol/L (136-145)
[2018-12-05] MEDS ORDERED: Lactated Ringer's 1,000 ML IV SCH (08:00)
[2018-12-05] MEDS ORDERED: Potassium Chloride 20 MEQ TAB PO SCH ×2 (08:00→11:00)
[2018-12-05] MEDS ORDERED: Dextrose 5 %-0.45 % NaCl 1,000 ML IV SCH (08:00)
[2018-12-05] MEDS ORDERED: Multivitamin W/ Minerals 1 TAB PO SCH (09:00)
[2018-12-05] MEDS ORDERED: Ergocalciferol 1.25 MG(50,000 UNITS) CAP PO SCH (09:00)
[2018-12-05 09:04] LABS: #Monocytes 0.3 thou/uL (0.11-0.59); #Neutrophils 2.7 thou/uL (1.40-6.50); %Basophils 0.8 % (0.0-1.0); %Eosinophils 0.7 % (0.0-10.0); %Lymphocytes 25.1 % (21.0-51.0); %Monocytes 6.7 % (0.0-10.0); %Neutrophils 66.8 % (42.0-75.0); Hemoglobin 9.4 g/dL (12.0-16.0); Mean Corpuscular HGB CONC 32.2 g/dL (32.0-36.0); Mean Corpuscular Hemoglobin 32.3 pg (27.0-31.0); Mean Platelet Volume 7.2 fL (7.4-10.4); Platelet Count 101 thou/uL (130-400); RBC Distribution Width 13.4 % (11.5-14.5); Red Blood Cell (RBC) Count 2.91 mill/uL (4.20-5.40); White Blood Cell (WBC) Count 4.1 thou/uL (4.8-10.8)
--- NOTE | 2018-12-05 09:24 | PRG ---
DATE OF SERVICE: 12/05/2018 SUBJECTIVE: The patient is pleasant, but remains confused. She is disoriented to time, place. She has received some Valium last night. OBJECTIVE: VITAL SIGNS: Her temperature is 98.7, pulse 102, blood pressure 169/97, O2 saturation 94%. HEENT: Unremarkable. NECK: No JVD. LUNGS: Clear. CARDIAC: S1, S2. Regular. ABDOMEN: Soft. EXTREMITIES: Bruised over the right arm. LABORATORY DATA: Sodium 142, potassium 3.1, chloride 103, CO2 of 29, BUN 23, creatinine 0.9, glucose 96. CPK is 496. ASSESSMENT: 1. Rhabdomyolysis. 2. Acute renal dysfunction, which has improved. 3. Likely this was starvation ketosis. 4. I think we are looking more at Alzheimer type dementia picture rather than alcohol withdrawal psychosis. RECOMMENDATION: 1. Stop bicarb drip and start D5 half-normal saline. 2. Minimize Haldol and benzodiazepines if at all possible. 3. Transfer out even if it means medical room as she will do better with less interruptions. Job ID: [id number]
[2018-12-05] MEDS: Heparin 5,000 UNITS/ML VIAL SC SCH ×3 (09:25→20:16)
--- NOTE | 2018-12-05 09:26 | RAD ---
EXAM: Single view of the chest HISTORY: Wheezing with concern for atelectasis versus pneumonia COMPARISON: 09/15/2018 FINDINGS: Single view of the chest shows a normal sized cardiomediastinal silhouette. There is a sma ll left pleural effusion with adjacent atelectasis. Calcified granulomas are seen in the left lung base. Bilateral perihilar fullness is seen. There is a right humeral neck fracture of uncertain age. IMPRESSION: 1. Small left pleural effusion 2. Right humeral neck fracture
[2018-12-05] MEDS: Magnesium Oxide 400 MG TAB PO SCH (10:29)
[2018-12-05] MEDS: Thiamine 100 MG TAB PO SCH (10:29)
[2018-12-05] MEDS: Multivitamin W/ Minerals 1 TAB PO SCH (10:31)
[2018-12-05] MEDS: PHOS-NAK 1 PKT PACK PO SCH ×3 (10:31→20:16)
[2018-12-05] MEDS ORDERED: Lisinopril 20 MG TAB PO SCH (12:00)
[2018-12-05] MEDS ORDERED: hydrALAZINE 20 MG/ML VIAL SLOW IVP PRN (14:08)
[2018-12-05] MEDS ORDERED: Carvedilol 25 MG TAB PO SCH (15:00)
--- NOTE | 2018-12-05 15:24 | PRG ---
DATE OF SERVICE: 12/05/2018 SUBJECTIVE: 78-year-old female with known history of chronic alcohol abuse, being followed up for acute renal failure associated with metabolic acidosis. The patient reports feeling better. Denied nausea, vomiting, or shortness of breath. OBJECTIVE: VITAL SIGNS: Temperature 98.7, pulse 115, respiratory rate 16, SpO2 of 95% on 2 L nasal cannula and blood pressure is 135/112. GENERAL: Elderly looking female, in no distress. Afebrile. Anicteric. Acyanotic. HEENT: Normocephalic, atraumatic. Oral mucosa is moist. CARDIOVASCULAR: Regular rhythm and rate, but tachycardic. RESPIRATORY: Fair air entry bilateral with some few scattered crackles and rhonchi. GI: Full, soft, nontender, nondistended with normal bowel sounds. EXTREMITIES: Grossly normal looking, atraumatic with no obvious edema or erythema. NEUROLOGIC: Conscious, alert, and oriented x3 with appropriate mental status. Cranial nerves 2 through 12 are grossly intact. DIAGNOSTIC DATA: Renal function panel today showed sodium 142, potassium 3.1, chloride 103, CO2 of 29, BUN 23, creatinine 0.97, glucose 96, calcium 8.0, phosphorus 1.7, and albumin 3.0. Magnesium is 1.6. CBC showed WBC count of 4.1, hemoglobin of 9.4, MCV of 100 and platelet of 101. ASSESSMENT AND PLAN: 1. Acute kidney injury: Due to hemodynamic factors related to volume depletion from poor oral intake as well as alcohol induced diuresis. Creatinine is down from above 2 to 0.97 with IV fluid therapy. We will back off IV fluid as patient is showing signs of pulmonary congestion. 2. Hypokalemia: Due to poor oral intake and saline induced diuresis. We will replete with potassium chloride. We will also monitor serum magnesium. 3. Hyperphosphatemia: Due to poor oral intake. Start phos/mag supplementation. 4. Hypertension: Blood pressure is getting worse. Alcohol withdrawal is a concern, especially with associated tachycardia. We defer to primary attending for management of alcohol withdrawal. The patient is currently restarted on lisinopril. This would not be my choice of antihypertensive at this time as the patient has volume issues. Leave it as it may, I will add Coreg 25 mg p.o. b.i.d. to get better blood pressure control. 5. Rhabdomyolysis, mild: CK is down from above 1000 to less than 400. [place] oral intake advised. We will monitor CK tomorrow. 6. Metabolic acidosis: Resolved with bicarb containing infusion. We will monitor closely. Job ID: [id number]
[2018-12-05] MEDS: Folic Acid 1 MG TAB PO SCH (16:21)
[2018-12-05] MEDS: Carvedilol 25 MG TAB PO SCH (20:16)
--- NOTE | 2018-12-06 06:10 | PDOC.FM ---
- Subjective Subjective: Increased agitation overnight. Required 1 dose valium and rest well afterwards. This more is drowsy and thinks she is at home, able to reorient. No pains, fever /chills, n/v/d/c, SOB. - Objective MAR Reviewed: Yes Vital Signs & Weight: Vital Signs (12 hours) Temp Pulse Resp BP BP Pulse Ox 12/06/18 04:17 132/72 12/06/18 04:00 98.3 F 101 H 18 137/72 12/06/18 03:04 84 195/102 H 12/06/18 02:30 84 22 H 92 L 12/06/18 00:00 97.9 F 84 18 175/84 H 92 L 12/05/18 20:15 162/77 H 12/05/18 20:07 94 L 12/05/18 20:00 97.9 F 93 18 162/77 H 90 L Weight Admit Weight 48.081 kg Weight 48.6 kg Most Recent Monitor Data Heart Rate from ECG 98 NIBP 162/100 NIBP BP-Mean 120 Respiration from ECG 24 SpO2 94 I&O: 12/04/18 12/05/18 12/06/18 06:59 06:59 06:59 Intake Total 2605 3180 1375 Output Total 250 1500 400 Balance 2355 1680 975 Result Diagrams: 12/05/18 08:30 12/06/18 05:58 Phys Exam - Physical Examination Constitutional: NAD (resting comfortably) HEENT: moist MMs Neck: supple Respiratory: no wheezing, no rales, no rhonchi, clear to auscultation bilateral Cardiovascular: RRR, no significant murmur, no rub Gastrointestinal: soft, non-tender, no distention, positive bowel sounds Musculoskeletal: no edema Dx/Plan (1) ANDREW (acute kidney injury) Code(s): N17.9 - ACUTE KIDNEY FAILURE, UNSPECIFIED Status: Resolved (2) Elevated troponin Code(s): R74.8 - ABNORMAL LEVELS OF OTHER SERUM ENZYMES Status: Resolved (3) Hypotension Status: Resolved (4) Metabolic acidosis Code(s): E87.2 - ACIDOSIS Status: Resolved (5) History of alcohol abuse Code(s): F10.11 - ALCOHOL ABUSE, IN REMISSION Status: Chronic (6) Hypertension Code(s): I10 - ESSENTIAL (PRIMARY) HYPERTENSION Status: Chronic Qualifiers: Hypertension type: essential hypertension Qualified Code(s): I10 - Essential (primary) hypertension - Plan Plan: 78yo F with h/o alcohol abuse who presents with ANDREW, hypotension, metabolic acidosis, and generalized deconditioning. 1. Deconditioning - PT consulted, apprec recs - [place] Machine Operator Helper consulted, apprec recs - Will continue to attempt to contact family for placement. Attempted to call but could not get answer. Appreciate CM assistance. - Replacing Vit D 2. Hypertensive - originally Hypotension, resolved - D/c'ed IVF, restarted home Lisinopril and Nepho added Coreg yesterday. - BP 150s-170s, Will monitor and adjust as needed. 3. Pre-renal ANDREW, Resolved - FeNa <0.5, Cr 2.34->0.97. Replacing lytes. Will Monitor. - Consulted Dr. Mooney with Nephrology, added Coreg, appreciate recs. 4. Anion Gap Metabolic Acidosis, resolved - AG 29 -> 12. Beta hydroxybutyrate 10. - h/o alcohol abuse. Starvation ketosis with component of alcoholic ketosis. - CM consulted to help with arrangement of placement and living conditions. - Pulnita, Dr. Gutierrez, consulted, apprec rec. 5. Elevated troponin, resolved - Denies any current chest pain. Trops stable. 6. h/o alcohol abuse - ASE protocol, no current signs of withdrawal. Valium prn. 7. Asymptomatic Bacteruria - UA with multiple squamous cells, + WBC, LE, neg nite. s/p 1 dose Rocephin - VSS, asx, unlikely cystitis. Will monitor and no further abx at this time. Code status: Full Diet: Regular VTE ppx: Heparin Dispo: Pending PT and CM eval and placement options once contacted family. Addendum - Attending - Attending Attestation Date/Time: 12/06/18 9414 I personally evaluated the patient and discussed the management with Dr. Anjana Butler. I agree with the History, Examination, Assessment and Plan documented above with any addition or exceptions noted below. Patient somnolent but arousable this morning. Unable to assess mentation. ANDREW and metabolic acidosis from starvation ketosis and alcoholic diuresis- improved. HypoK, hypomg, and hypophos- replace HTN- improved R humeral neck fracture- will splint shoulder/arm for now and f/u once mentation improves to try and determine age of fx. CM for placement assistance.
[2018-12-06 06:41] LABS: Anion Gap 13 mmol/L (10-20); BUN (Urea Nitrogen) 13 mg/dL (9.8-20.1); Calc. Creatinine Clearance 52 mL/min (70-130); Calcium 8.8 mg/dL (7.8-10.44); Carbon Dioxide 29 mmol/L (23-31); Chloride 97 mmol/L (98-107); Estimated GFR-MDRD 84; Glucose 106 mg/dL (83-110); Magnesium 1.5 mg/dL (1.6-2.6); Phosphorus 1.4 mg/dL (2.3-4.7); Potassium 3.4 mmol/L (3.5-5.1); Sodium 136 mmol/L (136-145)
[2018-12-06] MEDS ORDERED: Potassium Phosphate 9 MMOL in Sodium Chloride 0.9% 100 ML IVPB SCH (09:15)
[2018-12-06] MEDS ORDERED: Magnesium 2 GM/50 ML 2 GM in Premix Bag 1 BAG IVPB SCH (10:30)
[2018-12-06] MEDS: Heparin 5,000 UNITS/ML VIAL SC SCH ×3 (10:43→20:56)
[2018-12-06] MEDS: Magnesium Oxide 400 MG TAB PO SCH (10:44)
[2018-12-06] MEDS: Multivitamin W/ Minerals 1 TAB PO SCH (10:44)
[2018-12-06] MEDS: Lisinopril 20 MG TAB PO SCH (10:44)
[2018-12-06] MEDS: Thiamine 100 MG TAB PO SCH (10:44)
[2018-12-06] MEDS: Carvedilol 25 MG TAB PO SCH ×2 (10:44→20:56)
--- NOTE | 2018-12-06 14:32 | PQF ---
CLINICAL DOCUMENTATION IMPROVEMENT CLARIFICATION FORM: ICD-10 Updated PLEASE DO AN ADDENDUM TO THE PROGRESS NOTE WITH ANY DOCUMENTATION UPDATES OR ADDITIONS AND CARRY THROUGH TO DC SUMMARY. THANK YOU. Date: 12/06/2018 ATTN: Dr. Helms/ Attending Dr. Mosqueda Please exercise your independent, professional judgment in responding to the clarification form. Clinical indicators are provided on the bottom of this form for your review Please check appropriate box(s): [ ] Protein Calorie Malnutrition: [ ] Mild [ ] Moderate [ ] Severe [ x] Other Malnutrition (please specify): Malnutrition related to alcoholism [ ] Underweight without malnutrition [ ] Cachexia [ ] Other diagnosis: [ ] Unable to determine In addition, please specify: Present on Admission (POA): [x ] Yes [ ] No [ ] Unable to determine CLINICAL INDICATORS - SIGNS / SYMPTOMS / LABS H&P 12/03: Upper Level: she reports decreased appetite and PO intake over the past couple of months Payroll Manager's Assessment 12/04: -5% over the past year based on previous records. Nutrition diagnosis: Malnutrition related to alcoholism as evidenced by: suboptimal intake x several weeks prior to admit with refusal of 2 meals here, moderate temporal muscle wasting suggestive of non-severe malnutrition in context of a chronic illness RISKS: H&P Upper level: PMHx HTN and chronic alcohol abuse with N/V that started last night. Hypotension 2/2 dehydration. ANDREW. Anion Gap Metabolic Acidosis TREATMENT: Order 12/03: Payroll Manager Consult -malnourished Moderate Malnutrition (in acute illness) Energy Intake: <75% of estimated energy requirement for > 7 days Weight Loss: 1-2%/1 week; 5%/ 1 month; 7.5%/3 months Other: mild body fat loss; mild muscle mass loss; mild fluid accumulation; Severe Malnutrition (in acute illness) Energy Intake: < 50% of estimated energy requirement for > 5 days Weight Loss: >1-2%/1 week; >5%/1 month; >7.5%/3 months Other: moderate body fat loss; moderate muscle mass loss; moderate- severe fluid accumulation; measurably reduced weigh tank operator strength Moderate Malnutrition (in chronic illness) Energy Intake: <75% of estimated energy requirement for >1 month Weight Loss: 5%/1 month; 7.5%/3 months; 10%/6 months; 20%/1 year Other: mild body fat loss; mild muscle mass loss; mild fluid accumulation Severe Malnutrition (in chronic illness) Energy Intake: <75% of estimated energy requirement for >1 month Weight Loss: >5%/1 month; >7.5%/3 months; >10%/6 months; >20%/1 year Other: severe body fat loss; severe muscle mass loss; severe fluid accumulation; measurably reduced weigh tank operator strength Thank you, Chey (This form is maintained as a part of the permanent medical record) 2014 [employer] All Rights Reserved Chey Garcia RN, BSN [email or web address] Office: [phone] [facility] HOSPITALJose
[2018-12-06] MEDS: Folic Acid 1 MG TAB PO SCH (16:27)
--- NOTE | 2018-12-06 16:56 | RAD ---
RIGHT HUMERUS TWO VIEWS: HISTORY: Right humeral fracture. FINDINGS: There is a mildly displaced fracture involving the neck of the right humerus. POS: H
--- NOTE | 2018-12-06 17:05 | PRG ---
DATE OF SERVICE: 12/06/2018 SUBJECTIVE: A 78-year-old female with known history of chronic alcohol abuse, who has been followed up for acute renal failure associated with metabolic acidosis and electrolyte derangements. The patient reported no new complaints. Denied fever, nausea, or vomiting. Oral intake, however, is poor. OBJECTIVE: VITAL SIGNS: Temperature 98.1, pulse 91, respiratory rate 16, SpO2 of 91 on room air, and blood pressure 148/76. GENERAL: Elderly looking female, in no obvious distress. The patient is fatigued. Afebrile and acyanotic. HEENT: Normocephalic and atraumatic. Oral mucosa is moist. CVS: Regular rhythm and rate with normal heart sounds 1 and 2. RESPIRATORY: Fair air entry bilaterally with few transmitted sounds. No obvious crackle or rhonchi was appreciated. GI: Full, soft, nontender, nondistended with normal bowel sounds. EXTREMITIES: Grossly normal looking, atraumatic with no obvious edema or erythema. CANDY FEEDER: Conscious and alert, remains weak. Cranial nerves 2 through 12 are grossly intact. DIAGNOSTIC DATA: Chemistry today showed sodium 136, potassium 3.4, chloride 97, CO2 of 29, BUN 13, creatinine 0.68, glucose 106, calcium 8.8, phosphorus 1.4, magnesium 1.5. ASSESSMENT: 1. Acute kidney injury: Due to hemodynamic factors related to volume depletion from poor oral intake as well as alcohol induced diuresis. Creatinine is trending downwards progressively to 0.68, which is about her baseline. 2. Hypokalemia: Due to poor oral intake as well as increased losses from the kidney. Hypomagnesemia also is contributory. 3. Hypomagnesemia: Due to poor oral intake and alcohol induced diuresis. 4. Hypophosphatemia: Due to poor oral intake. 5. Hypertension. PLAN: 1. Replete serum potassium and phosphate with potassium phosphate. 2. We will replete magnesium with 2 g of magnesium sulfate. 3. Continue IV fluid therapy, given poor oral intake. [place] oral intake advised. Recheck renal function and electrolytes in the morning. Job ID: [id number]
[2018-12-06 17:24] VITALS: BMI 20.2
--- NOTE | 2018-12-07 05:53 | PDOC.FM ---
- Subjective Subjective: Pt much more alert this morning. A/O x1, most likely baseline. No concerns or complaints. Denies Cp, SOB, n/v/d/c, fever/chills. She is eager for discharge. CM spoke with and would like placement in rehab vs longterm. Speech consulted for cognitive eval, Slums 12/29, will need long-term assistance. Pt does not recall any humeral fractures, but does endorse multiple falls in past recently. Does not have any pain or complaints about her right arm. - Objective MAR Reviewed: Yes Vital Signs & Weight: Vital Signs (12 hours) Temp Pulse Resp BP BP Pulse Ox 12/07/18 04:00 98.3 F 79 20 125/77 95 12/07/18 00:00 98.0 F 70 20 119/69 12/06/18 20:15 95 12/06/18 20:10 149/80 H 12/06/18 20:00 97.9 F 73 20 149/80 H 95 Weight Admit Weight 48.081 kg Weight 48.6 kg Most Recent Monitor Data Heart Rate from ECG 98 NIBP 162/100 NIBP BP-Mean 120 Respiration from ECG 24 SpO2 94 I&O: 12/05/18 12/06/18 12/07/18 06:59 06:59 06:59 Intake Total 3180 1375 Output Total 1500 400 Balance 1680 975 Result Diagrams: 12/05/18 08:30 12/07/18 05:42 Phys Exam - Physical Examination Constitutional: NAD Neck: supple Respiratory: no wheezing, no rales, no rhonchi, clear to auscultation bilateral Cardiovascular: RRR, no significant murmur, no rub Gastrointestinal: soft, non-tender, no distention, positive bowel sounds Musculoskeletal: no edema 5/5 strength of right arm, non tender, full ROM Neurological: non-focal Deviation from normal: A/O x1, more alert, pleasant, able to reorinent but forgetful Dx/Plan (1) ANDREW (acute kidney injury) Code(s): N17.9 - ACUTE KIDNEY FAILURE, UNSPECIFIED Status: Resolved (2) Elevated troponin Code(s): R74.8 - ABNORMAL LEVELS OF OTHER SERUM ENZYMES Status: Resolved (3) Hypotension Status: Resolved (4) Metabolic acidosis Code(s): E87.2 - ACIDOSIS Status: Resolved (5) History of alcohol abuse Code(s): F10.11 - ALCOHOL ABUSE, IN REMISSION Status: Chronic (6) Hypertension Code(s): I10 - ESSENTIAL (PRIMARY) HYPERTENSION Status: Chronic Qualifiers: Hypertension type: essential hypertension Qualified Code(s): I10 - Essential (primary) hypertension (7) Fracture of neck of humerus Code(s): S42.213A - UNSP DISP FX OF SURGICAL NECK OF UNSP HUMERUS, INIT Status : Acute Qualifiers: Encounter type: initial encounter Fracture type: closed Laterality: right Qualified Code(s): S42.211A - Unspecified displaced fracture of surgical neck of right humerus, initial encounter for closed fracture - Plan Plan: 78yo F with h/o alcohol abuse who presented with ANDREW, hypotension, metabolic acidosis, and generalized deconditioning. 1. Deconditioning - PT consulted, apprec recs - Maintenance And Custodian Supervisor consulted, apprec recs. Replacing Vit D. - visited yesterday and spoke with coverage team, would like to pursue placement options such as inpt rehab. Appreciate CM assistance. 2. Right humeral neck fracture - Mildly displaced on XR - undetermined age, no sxs. Pt poor historian regarding. - Will consult Ortho, apprec recs 3. Altered mentation, likely dementia - h/o ETOH abuse - Unsure of baseline, cognitive eval SLUMS 12/29, will need long-term care assistance per speech recs. - CM working for placement. 4. Hypertensive - originally Hypotension that has since resolved. - D/c'ed IVF, restarted home Lisinopril and Nepho added Coreg. - BP 120s/70s this AM, Will monitor and adjust as needed. 5. Pre-renal ANDREW, Resolved - FeNa <0.5, Cr 2.34->0.97. Replacing lytes. Will Monitor. - Consulted Dr. Mooney with Nephrology, added Coreg and replaced lytes, appreciate recs. 6. Anion Gap Metabolic Acidosis, resolved - AG 29 -> 12. Beta hydroxybutyrate initially 10. - h/o alcohol abuse. Starvation ketosis with component of alcoholic ketosis. - Pulm, Dr. Gutierrez, consulted, apprec recs. 7. Elevated troponin, resolved - Denies any current chest pain. Trops stable. 8. h/o alcohol abuse - No current signs of withdrawal. 9. Asymptomatic Bacteruria - UA with multiple squamous cells, + WBC, LE, neg nite. s/p 1 dose Rocephin - VSS, asx, unlikely cystitis. Will monitor and no further abx at this time. Code status: Full Diet: Regular VTE ppx: Heparin Dispo: Pending PT and CM eval and placement options. Replacing lytes. Discharge once placement available. Addendum - Attending - Attending Attestation Date/Time: 12/07/182039 I personally evaluated the patient and discussed the management with Dr. Anjana Butler. I agree with the History, Examination, Assessment and Plan documented above with any addition or exceptions noted below. Patient much more alert today though still A&O x 1. Patient wanting to go home. ANDREW-resolved Hypokalemia, hypomg, and hypophos- replace Await placement
[2018-12-07 06:29] LABS: Anion Gap 10 mmol/L (10-20); BUN (Urea Nitrogen) 18 mg/dL (9.8-20.1); Calc. Creatinine Clearance 47 mL/min (70-130); Calcium 8.9 mg/dL (7.8-10.44); Carbon Dioxide 32 mmol/L (23-31); Chloride 99 mmol/L (98-107); Estimated GFR-MDRD 74; Glucose 98 mg/dL (83-110); Potassium 3.2 mmol/L (3.5-5.1); Sodium 138 mmol/L (136-145)
[2018-12-07] MEDS: Lisinopril 20 MG TAB PO SCH (08:40)
[2018-12-07] MEDS: Carvedilol 25 MG TAB PO SCH ×2 (08:40→20:08)
[2018-12-07] MEDS: Magnesium Oxide 400 MG TAB PO SCH (08:40)
[2018-12-07] MEDS: Thiamine 100 MG TAB PO SCH (08:40)
[2018-12-07] MEDS: Multivitamin W/ Minerals 1 TAB PO SCH (08:41)
[2018-12-07] MEDS: Heparin 5,000 UNITS/ML VIAL SC SCH ×3 (08:41→20:09)
[2018-12-07] MEDS ORDERED: Potassium Chloride 20 MEQ TAB PO SCH ×2 (09:15→15:00)
[2018-12-07] MEDS ORDERED: PHOS-NAK 1 PKT PACK PO SCH (09:30)
--- NOTE | 2018-12-07 11:03 | RAD ---
XR Shoulder Rt 3 View STANDARD History: Fracture Comparison: Radiograph prior day. Radiograph March 2018 Findings: Old healed anteriorly displace humeral neck fracture. Old right rib fracture. No acute frac ture is appreciated. Impression: Old humeral neck fracture extending into the greater tuberosity.
--- NOTE | 2018-12-07 11:29 | CON ---
DATE OF CONSULTATION: 12/07/2018 This is Bella Graf PA-C dictating a report for Kermit Butler MD. REQUESTING SERVICE: [facility]. REASON FOR CONSULTATION: Right proximal humerus fracture. HISTORY OF PRESENT ILLNESS: This is a 78-year-old female, currently admitted for history of alcohol abuse with acute kidney injury, metabolic acidosis, and generalized deconditioning. Upon further workup in the hospital, the patient was found incidentally to have a right proximal humerus fracture. We have been consulted for this reason. The patient does have some underlying dementia. Currently at bedside, the patient denies any falls or trauma recently. She denies any shoulder pain. She states she is right-hand dominant. She denies any numbness or tingling or problems with movement in her right upper extremity. She states she does not know why she is even here. PAST MEDICAL HISTORY: Significant for; 1. Dementia. 2. History of alcohol abuse. 3. Coronary artery disease. PAST SURGICAL HISTORY: 1. Right total knee replacement. 2. Appendectomy. 3. Cholecystectomy. 4. Tonsillectomy. FAMILY HISTORY: Reviewed and noncontributory. SOCIAL HISTORY: The patient lives at home with her in [place]. She is retired. She drinks socially as reported today with her . She denies any drug use or tobacco use. REVIEW OF SYSTEMS: Conducted and otherwise negative except for stated above. PHYSICAL EXAMINATION: VITAL SIGNS: With a temperature of 98 degrees Fahrenheit, pulse of 81, blood pressure of 150/70, respiratory rate of 17, and O2 saturation of 89% on room air. GENERAL: The patient is awake and alert. She is oriented x1. She is pleasant and cooperative today with exam findings. She does appear slightly confused. HEENT: Head is normocephalic and atraumatic. NECK: Supple. Trachea midline. LUNGS: Breathing nonlabored. EXTREMITIES: The right upper extremity was evaluated. There are some areas of what appeared to be superficial bleeding just from skin tears. There is no soft tissue swelling at the shoulder or the proximal humerus. There is no ecchymosis. This area is nontender to palpation. The patient has full motion in the shoulder. She is able to forward flex as well as internally and externally rotate. Full range of motion in the elbow with flexion, extension, pronation, and supination. Distal neurovascular status is intact. Other extremities were evaluated. There are no obvious deformities noted. Of note, there is a surgical scar from previous right total knee replacement. RADIOGRAPHIC FINDINGS: Reviewed including 2 views of the humerus including internal and external rotation, which show evidence of a proximal humerus fracture. An additional scapular-Y was obtained to further evaluate the joint space. This fracture does appear to be subacute. ASSESSMENT: Right proximal humerus fracture, subacute. PLAN: At this time, the patient is having no pain. This does not appear to be an acute injury. This was found incidentally. She does not need a sling. She can weightbear as tolerated with a walker. According to Physical Therapy, she has been doing this without any difficulty. No surgical intervention is anticipated at this time. She can follow up in our office in 2 to 3 weeks for further evaluation and new x-rays. Job ID: [id number] MTDD
--- NOTE | 2018-12-07 12:29 | PRG ---
DATE OF SERVICE: 12/07/2018 SUBJECTIVE: A 78-year-old female with chronic alcohol abuse, being followed up for acute renal failure and electrolyte derangements. The patient reports feeling a lot better today. Denied any pain, nausea, or vomiting. OBJECTIVE: VITAL SIGNS: Temperature 98, pulse 81, respiratory rate 17, SpO2 is 89% on room air, blood pressure is 150/70. GENERAL: Elderly looking female, in no distress. Afebrile. Anicteric. HEENT: Normocephalic and atraumatic. Oral mucosa is moist. CARDIOVASCULAR: Regular rhythm and rate with normal heart sounds 1 and 2. RESPIRATORY: Fair air entry bilaterally with no obvious crackle or rhonchi. GASTROINTESTINAL: Full, soft, nontender, and nondistended with normal bowel sounds. EXTREMITIES: Grossly normal, looking atraumatic with no edema or erythema. CENTRAL NERVOUS SYSTEM: Conscious, alert, and oriented x3 with appropriate mental status. Cranial nerves 2 through 12 are grossly intact. DIAGNOSTIC DATA: BMP today showed sodium 138, potassium 3.2, chloride 99, CO2 of 32, creatinine 1.0, BUN 18, creatinine 0.76, glucose 98, calcium 8.9. ASSESSMENT AND PLAN: 1. Acute kidney injury: Resolved. 2. Hypokalemia: Persistent. Due to poor oral intake. The patient has already received 40 mEq of potassium chloride. We will give another 40 mEq and recheck serum potassium. 3. Hypomagnesemia: Due to poor oral intake. We will monitor electrolyte levels and replete if needed. 4. Hyperphosphatemia: Due to poor oral intake. Continue Fosamax supplementation. 5. Hypertension: Control is better. The patient is currently on lisinopril and Coreg maximum doses. If blood pressure is still elevated, we will add amlodipine. 6. We will get repeat BMP, phosphorus and magnesium in the morning. 7. Disposition: [place] oral intake advised. We will start the patient on oral supplementation. Job ID: [id number]
[2018-12-07] MEDS: PHOS-NAK 1 PKT PACK PO SCH ×2 (15:35→20:09)
[2018-12-07] MEDS: Folic Acid 1 MG TAB PO SCH (15:35)
[2018-12-08 05:16] LABS: Anion Gap 11 mmol/L (10-20); BUN (Urea Nitrogen) 17 mg/dL (9.8-20.1); Calc. Creatinine Clearance 47 mL/min (70-130); Carbon Dioxide 30 mmol/L (23-31); Chloride 102 mmol/L (98-107); Eosinophils 1 % (0-10); Estimated GFR-MDRD 74; Glucose 93 mg/dL (83-110); Hypochromia SLIGHT = 6-15 cells (100X) (0-5/hpf); Lymphocytes 50 % (21-51); MDiff Complete? YES; Macrocytosis SLIGHT = 6-15 cells (100X) (0-5/hpf); Mean Corpuscular HGB CONC 32.6 g/dL (32.0-36.0); Mean Corpuscular Hemoglobin 33.3 pg (27.0-31.0); Mean Platelet Volume 7.4 fL (7.4-10.4); Monocytes 15 % (0-10); Neutrophil 34 % (42-75); Phosphorus 3.1 mg/dL (2.3-4.7); Platelet Count 129 thou/uL (130-400); Platelet Morphology Comment Appears Adequate; Potassium 4.1 mmol/L (3.5-5.1); RBC Distribution Width 13.6 % (11.5-14.5); Red Blood Cell (RBC) Count 2.69 mill/uL (4.20-5.40); Sodium 139 mmol/L (136-145)
--- NOTE | 2018-12-08 06:15 | PDOC.FM ---
- Subjective Subjective: Doing very well this morning, A/O x1, but appears baseline. No acute events overnight. Denies any fever/chills, n/v/d/c, CP, SOB. She is eager to be discharge. Able to ambulate well with PT yesterday. Decrease appetite, chronic, encouraged PO ensure and hydration with as much PO solids as tolerated. - Objective MAR Reviewed: Yes Vital Signs & Weight: Vital Signs (12 hours) Temp Pulse Resp BP Pulse Ox 12/07/18 22:00 94 L 12/07/18 19:40 97.9 F 70 20 125/82 94 L Weight Admit Weight 48.081 kg Weight 48.6 kg Most Recent Monitor Data Heart Rate from ECG 98 NIBP 162/100 NIBP BP-Mean 120 Respiration from ECG 24 SpO2 94 I&O: 12/06/18 12/07/18 12/08/18 06:59 06:59 06:59 Intake Total 1375 500 780 Output Total 400 Balance 975 500 780 Result Diagrams: 12/08/18 03:59 12/08/18 03:59 Phys Exam - Physical Examination Constitutional: NAD (resting comfortably) HEENT: moist MMs Neck: supple Respiratory: no wheezing, no rales, no rhonchi, clear to auscultation bilateral Cardiovascular: RRR, no significant murmur, no rub Gastrointestinal: soft, non-tender, no distention, positive bowel sounds Musculoskeletal: no edema Neurological: non-focal Deviation from normal: A/O x1 Dx/Plan (1) ANDREW (acute kidney injury) Code(s): N17.9 - ACUTE KIDNEY FAILURE, UNSPECIFIED Status: Resolved (2) Elevated troponin Code(s): R74.8 - ABNORMAL LEVELS OF OTHER SERUM ENZYMES Status: Resolved (3) Hypotension Status: Resolved (4) Metabolic acidosis Code(s): E87.2 - ACIDOSIS Status: Resolved (5) History of alcohol abuse Code(s): F10.11 - ALCOHOL ABUSE, IN REMISSION Status: Chronic (6) Hypertension Code(s): I10 - ESSENTIAL (PRIMARY) HYPERTENSION Status: Chronic Qualifiers: Hypertension type: essential hypertension Qualified Code(s): I10 - Essential (primary) hypertension (7) Fracture of neck of humerus Code(s): S42.213A - UNSP DISP FX OF SURGICAL NECK OF UNSP HUMERUS, INIT Status : Chronic Qualifiers: Encounter type: initial encounter Fracture type: closed Laterality: right Qualified Code(s): S42.211A - Unspecified displaced fracture of surgical neck of right humerus, initial encounter for closed fracture - Plan Plan: 78yo F with h/o alcohol abuse who presented with ANDREW, hypotension, metabolic acidosis, and generalized deconditioning. 1. Deconditioning - PT consulted, pt improved from initial eval, able to ambulate around room with assistance, apprec recs - Firewood Cutter consulted, apprec recs. Replacing Vit D. - CM spoke with who is open for placement, Currently awaiting insurance approval, apprec CM assistance. 2. Right humeral neck fracture - Mildly displaced on XR. Undetermined age, no sxs. Pt unsure of timeline. - Ortho consulted, likely old fracture, no restrictions, f/u in 2-3 weeks as OP , apprec recs 3. Altered mentation, likely underlying dementia - h/o ETOH abuse. Unsure of baseline, cognitive eval SLUMS 12/29, will need long- term care assistance per speech recs. - Improved from initial hospitalization, but A/O x1, probable baseline - CM working for placement. 4. Hypertensive - originally Hypotension that has since resolved. - D/c'ed IVF, restarted home Lisinopril and Nepho added Coreg. - BP 120s/70s this AM, Will monitor and adjust as needed. 5. Pre-renal ANDREW, Resolved - FeNa <0.5, Cr 2.34->0.76. Replacing lytes as needed. Will Monitor. - Consulted Dr. Mooney with Nephrology, added Coreg, appreciate recs. 6. Anion Gap Metabolic Acidosis, resolved - h/o alcohol abuse. Starvation ketosis with component of alcoholic ketosis. - Pulnita, Dr. Gutierrez, consulted, apprec recs. 7. Elevated troponin, resolved - Asymptomatic. Trops stable. 8. h/o alcohol abuse - No current signs of withdrawal. 9. Asymptomatic Bacteruria - UA with multiple squamous cells, + WBC, LE, neg nite. s/p 1 dose Rocephin - VSS, asx, unlikely cystitis. Will monitor and no further abx at this time. Code status: Full Diet: Regular with Ensure BID VTE ppx: Heparin Dispo: Pending Placement. Addendum - Attending - Attending Attestation Date/Time: 12/08/18 1212 I personally evaluated the patient and discussed the management with Dr. Anjana Butler I agree with the History, Examination, Assessment and Plan documented above with any addition or exceptions noted below. Mentation improved. Pancytopenia- most likely nutritional but recommend f/u with PCP and possible heme/onc referral for outpatient workup. Stable for transfer to [facility] for continued PT
[2018-12-08] MEDS: Carvedilol 25 MG TAB PO SCH (08:34)
[2018-12-08] MEDS: Heparin 5,000 UNITS/ML VIAL SC SCH (08:35)
[2018-12-08] MEDS: Thiamine 100 MG TAB PO SCH (08:35)
[2018-12-08] MEDS: Lisinopril 20 MG TAB PO SCH (08:35)
[2018-12-08] MEDS: Multivitamin W/ Minerals 1 TAB PO SCH (08:35)
[2018-12-08 10:50] VITALS: BP 164/83; TEMP 97.6
--- NOTE | 2018-12-09 21:41 | DIS ---
DATE OF ADMISSION: 12/03/2018 DATE OF DISCHARGE: 12/08/2018 RESIDENT: Dr. Scooter Butler. ADMITTING ATTENDING: Dr. Emil Moore. DISCHARGE ATTENDING: Dr. Terese Mosqueda. CONSULT: 1. Dr. Mooney, Nephrology. 2. Dr. Gutierrez, Pulmonology. 3. Dr. Butler, Orthopedics PROCEDURES: 1. Abdomen CT pelvis on 12/03/2018, bilateral pleural effusions. Minimal bibasilar parenchymal changes, possibly mild pneumonitis or subsegmental atelectasis. Chronic diverticulosis with minimal wall thickening with no overt discrete diverticulitis. T12 and L2 vertebral body collapse, age indeterminate. No intraabdominal abscess or abnormal fluid collection. 2. Chest x-ray on 12/05/2018, small left pleural effusion. Right humeral neck fracture. 3. Humerus x-ray, right. Mildly displaced fracture involving the neck of the right humerus. 4. Blood cultures, no growth final. 5. Urine culture, no growth final. PRIMARY DIAGNOSES: 1. Anion gap metabolic acidosis. 2. Acute kidney injury. 3. Hypotension. 4. Deconditioning. SECONDARY DIAGNOSES: 1. Altered mentation due to likely underlying dementia. 2. History of alcohol abuse. 3. Asymptomatic bacteriuria. DISCHARGE MEDICATIONS: 1. Coreg 25 mg p.o. b.i.d. 2. Tylenol 650 mg p.o. q.4 hours p.r.n. 3. Lisinopril 40 mg p.o. daily. 4. Folic acid 1 mg p.o. daily. 5. Amantadine 10 mg p.o. daily. 6. Multivitamin one tablet p.o. daily. 7. Bisacodyl 10 mg p.o. daily p.r.n. 8. Thiamine 100 mg p.o. daily. 9. Nitroglycerin 0.4 mg sublingual q.5 minutes p.r.n. 10. Magnesium 64 mg p.o. b.i.d. 11. Zofran 4 mg sublingual q.6 hours p.r.n. 12. Tramadol 50 mg p.o. b.i.d. p.r.n. DISCONTINUED MEDICATIONS: None. HISTORY OF PRESENT ILLNESS AND HOSPITAL COURSE: The patient is a 78-year-old female with history of underlying dementia, who presented to the emergency department as a transfer from the [facility]. She was unsure of her presentation and was A and O x1 at presentation, therefore, not very much history could be obtained. She states that she woke up at one point with vomiting and nauseous, so decided to go to the emergency room. In the [facility] ED, she was given 2 L of fluid and a banana bag and was transferred to [place]. She was found to have a lactic acidosis of 2.7 and a creatinine of 2.12 and an anion gap of 33. She was then admitted to the [facility] for close monitoring, evaluation and management. Her initial ANDREW was likely both prerenal and possible ATN; therefore, Dr. Mooney with Nephrology was consulted. She was placed on IV fluids as per recommendations from Nephrology and her electrolytes were replaced per Nephrology recommendations. Her creatinine slowly improved throughout the hospitalization and was down to baseline at 0.76 on discharge. Her metabolic acidosis could resolve within the first 24 hours of hospitalization and her lactic acid trended down. Her hypotension improved with fluid boluses followed by gentle IV rehydration and within a few days of hospitalization, she was back to her chronic hypertension and thus was continued on her home lisinopril as well as Coreg started by Nephrology. Her blood pressures were stable at the time of discharge. Initially, her troponins were indeterminate, they were trended and negative. She had no EKG changes. She does have a history of alcohol abuse. She was placed on ASE protocol, but did not have any acute signs or symptoms of withdrawal throughout her hospitalization. After one day in the [facility], the patient was determined to be stable to transfer to the floor and thus was transferred to the floor for further evaluation and management. Once onto the floor, the patient remained at A and O x1 and was confused and disoriented. She was pleasant and calm, however unaware of her situation. Denied any pain, fevers, chills, nausea, vomiting, diarrhea, constipation, shortness of breath, or chest pain throughout her stay on the floor. Case Management was consulted to speak with family regarding her baseline mentation as well as placement wishes. Her UA was initially positive for white blood cells and leukocyte esterase, however, was not a clean catch. She was given one dose of Rocephin in the ED and was monitored throughout her hospitalization. She did not have any fevers or symptoms and thus, no further treatment was warranted. The patient's mentation continued to improve throughout her hospitalization. At the time of discharge, she was A and O x1, however, could be easily redirected, but did not know her situation or date. At times, the patient could understand that she was in the hospital, but could never remember the location. Regarding the patient's generalized deconditioning and weakness, dietitian was consulted and she was started on nutritional supplements. Physical Therapy was consulted who were able to assist the patient in ambulation and have recommended exercises. They recommended continued rehab for continued therapy. Her vitamin D was low and this was replaced throughout her hospitalization. A chest x-ray did incidentally demonstrate a right small fracture; however, the patient has full range of motion, full strength and no pain. She did not recall any previous fractures. A dedicated arm x-ray showed a mildly displaced fracture, thus Orthopedics was consulted. They recommended continued physical therapy with followup in 2 to 3 weeks and stated that this was probably an old fracture and needed no acute interventions. At the time of discharge, the patient was doing very well and was eager to go back to [facility]. A swing bed at [facility] had been obtained for the patient to continue physical therapy. Case management spoke with who agreed with this discharge plan. Discharge plan was discussed with as well as the patient and they voiced agreement understanding of discharge plan and were eager to go home. At the time of discharge, her vitals were stable. Lab work unremarkable and medical conditions such as ANDREW and metabolic acidosis were resolved and she was at her baseline mentation. The patient was then discharged to swing bed at [facility]. DISPOSITION: Stable. DISCHARGE INSTRUCTIONS: 1. Location: [facility]. 2. Diet: Regular. 3. Activity: As tolerated with continued physical therapy. 4. Followup: The patient is to follow up with the primary care physician within 1 week of discharge as well as with Orthopedics within 2-3 weeks. Job ID: [id number] [facility]OSPITALJose
== END 2018-12-08 14:13 | disposition swing bed (61) | DRG 683 ==
LOC: ERS 13:32 → CCU 15:26 → T4-B 12-05 16:53
PROVIDERS: ADMIT Family Medicine; ATTEND Family Medicine
DX: N17.0 Acute kidney failure with tubular necrosis (principal); E87.2 Acidosis; N30.00 Acute cystitis without hematuria; M62.82 Rhabdomyolysis; E46 Unspecified protein-calorie malnutrition; D61.818 Other pancytopenia; I95.9 Hypotension, unspecified; F03.90 Unspecified dementia, unspecified severity, without behavioral disturbance, psychotic disturbance, mood disturbance, and anxiety; R53.81 Other malaise; R74.8 Abnormal levels of other serum enzymes; F10.10 Alcohol abuse, uncomplicated; I10 Essential (primary) hypertension; E86.0 Dehydration; G89.29 Other chronic pain; D50.9 Iron deficiency anemia, unspecified; E83.39 Other disorders of phosphorus metabolism; E83.42 Hypomagnesemia; I25.10 Atherosclerotic heart disease of native coronary artery without angina pectoris; Z96.653 Presence of artificial knee joint, bilateral; K57.90 Diverticulosis of intestine, part unspecified, without perforation or abscess without bleeding; Z90.49 Acquired absence of other specified parts of digestive tract; Z87.81 Personal history of (healed) traumatic fracture; Z90.710 Acquired absence of both cervix and uterus
CPT/HCPCS: 36415; 51701; 71045; 74176; 80048; 80069; 81003; 81015; 82010; 82306; 82550; 82553; 82570; 82607; 83605; 83735; 84100; 84156; 84207; 84300; 84425; 84540; 85025; 87040; 87086; 94640; 96361; 96365; 96366; 96375; A4353; J0360; J0696; J1630; J1644; J2405; J3411; J3475; J3490; J7042; J7070; J7620; Q9967

== ENCOUNTER 2018-12-26 10:23 | Outpatient (CLI) | payer MEDICARE ==
--- NOTE | 2018-12-26 11:32 | MRI ---
MRI BRAIN WITHOUT CONTRAST: Date: 12/26/18 INDICATION: Seizure activity, TIA. IV contrast was not administered as the patient could not tolerate additional imaging sequences, with extensive motion throughout the exam. FINDINGS: There is enlargement of the ventricular system. Multifocal restricted diffusion is present within the bilateral posterior circulation, with involvement of bilateral occipital lobes and the right cerebel lar hemisphere. No significant mass effect. Mild restriction is seen at the right paramedian adeel. Th ere is mild microvascular ischemic disease of the cerebral white matter. Abnormal signal with increas ed FLAIR and T2 signal is present at the lateral aspect of the right cerebellum, limited by motion, a lthough favoring cavitary encephalomalacia. IMPRESSION: 1. Exam limited by motion. 2. 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 3. Small recent right paramedian pontine infarctions are present. 4. Right cerebellar hemispheric encephalomalacia. 5. Ventriculomegaly. POS: [facility]
== END 2018-12-26 10:24 | disposition home or self-care (01) ==
LOC: MRI 10:23
PROVIDERS: ATTEND Family Medicine
DX: G45.9 Transient cerebral ischemic attack, unspecified (principal); I63.9 Cerebral infarction, unspecified; G93.89 Other specified disorders of brain
CPT/HCPCS: 70551